=== PATIENT | female | born 1980 | race Caucasian/White ===

== ENCOUNTER 2021-04-15 13:06 | Emergency (ER) | payer OTHER ==
[2021-04-15 15:43] LABS: BASOPHIL 0.3 % (0-2); EOSINOPHIL 0.6 % (0-5); HCT 47.2 % (37.0-47.0); HGB 15.5 g/dl (12.5-16.0); LYMPHOCYTE 14.6 % (15-48); MCH 28.3 pg (25.0-31.0); MCHC 32.8 g/dL (32.0-36.0); MCV 86.3 fL (78.0-100.0); MONOCYTE 4.3 % (0-12); MPV 10.6 fL (6.0-9.5); NEUTROPHIL 79.9 % (41-80); NRBC 0; PLT 350 K/uL (150-400); RBC 5.47 M/uL (4.20-5.40); RDW 12.6 % (11.5-14.0); WBC 11.7 K/uL (4.0-10.5)
[2021-04-15 16:01] LABS: ECSTASY (MDMA) NEGATIVE (NEGATIVE); MARIJUANA (THC) NEGATIVE (NEGATIVE); METHADONE NEGATIVE (NEGATIVE); OPIATES NEGATIVE (NEGATIVE)
[2021-04-15 16:02] LABS: AMPHETAMINES NEGATIVE (NEGATIVE); BARBITURATES NEGATIVE (NEGATIVE); OXYCODONE NEGATIVE (NEGATIVE)
[2021-04-15 16:16] LABS: BUN 9 mg/dL (7-18); BUN/CREAT RATIO (CALC) 13.2 RATIO; CHLORIDE 102 mmol/L (98-107); CO2 (BICARBONATE) 27 mmol/L (21-32); CREATININE 0.68 mg/dL (0.51-0.95); GLUCOSE 97 mg/dL (74-106); POTASSIUM 3.8 mmol/L (3.5-5.1)
== END 2021-04-15 16:48 | disposition home or self-care (01) ==
LOC: FER 13:06
PROVIDERS: Nurse Practitioner Family
DX: R00.2 Palpitations (principal); Z20.822 Contact with and (suspected) exposure to COVID-19; Z88.0 Allergy status to penicillin; Z88.1 Allergy status to other antibiotic agents; Z86.16 Personal history of COVID-19
CPT/HCPCS: 36415; 71045; 80048; 80305; 84439; 84443; 84484; 85025; 85379; 93005